=== PATIENT | female | born 1955 | race Caucasian/White ===

== ENCOUNTER → 2017-01-11 | Outpatient (CLI) | payer BC ==
[~2017-01-11] MED LIST: NORCO 325 MG-51 TAB PO; PROBIOTIC FORMU1 CAP PO; VITAMIN D31000 I1 PO
== END ==
LOC: MC.RAD 10:06
DX: Z12.31 Encounter for screening mammogram for malignant neoplasm of breast (principal)

== ENCOUNTER 2017-05-31 22:10 | Emergency (ER) | payer BC ==
[~2017-05-31] VITALS: Ht 170.2 cm; Wt 56.8 kg
[2017-05-31 22:36] VITALS: BP 109/58; PULSE 81; TEMP 97.6
[2017-05-31] MEDS ORDERED: PROBIOTIC FORMU1 CAP PO (22:38)
[2017-05-31] MEDS ORDERED: VITAMIN D31000 I1 PO (22:38)
[2017-06-01] MEDS ORDERED: NORCO 325 MG-51 TAB PO (00:08)
== END 2017-06-01 00:28 | disposition home or self-care (01) ==
LOC: COL.ER 22:10
DX: M79.672 Pain in left foot (principal)

== ENCOUNTER → 2018-01-14 | Outpatient (CLI) | payer BC | LOC: MC.RAD 12:53 | DX: Z12.31 Encounter for screening mammogram for malignant neoplasm of breast (principal) ==

== ENCOUNTER → 2019-01-29 | Outpatient (CLI) | payer BC | LOC: MC.RAD 09:49 | DX: Z12.31 Encounter for screening mammogram for malignant neoplasm of breast (principal) ==

== ENCOUNTER → 2020-03-25 | Outpatient (CLI) | payer MEDICARE, BC | LOC: MC.RAD 12:15 | DX: Z12.31 Encounter for screening mammogram for malignant neoplasm of breast (principal) ==

== ENCOUNTER → 2021-06-13 | Outpatient (CLI) | payer BC, MEDICARE | LOC: MC.RAD 13:45 | DX: Z12.31 Encounter for screening mammogram for malignant neoplasm of breast (principal) ==

== ENCOUNTER → 2021-11-08 | Outpatient (CLI) | payer MEDICARE, BC | LOC: MC.RAD 12:43 | DX: N63.22 Unspecified lump in the left breast, upper inner quadrant (principal) ==

== ENCOUNTER 2022-01-06 08:01 | Day surgery (SDC) | payer MEDICARE, BC ==
[~2022-01-06] VITALS: Ht 170.2 cm; Wt 61.3 kg
[2022-01-06] MEDS ORDERED: CALCIUM 600 MG1 EAC2 PO (08:38)
[2022-01-06 09:04] VITALS: BP 102/56; PULSE 68; TEMP 97.7
[2022-01-06 10:44] VITALS: BP 97/57; PULSE 70; TEMP 97.8
--- NOTE | 2022-01-06 10:44 | NUR ---
Pt arrived from procedure awake and oriented. is present in room. Vitals obtained. Verbal report obtained from LUCIUS Tee. Pt requested hot coffee and a warm muffin. Incision to L breast is dry and intact; skin glue is dressing. Call bower is within reach on side table. Side rails x2. Pt denies nausea and pain.
[2022-01-06 10:59] VITALS: BP 99/63; PULSE 76
--- NOTE | 2022-01-06 10:59 | NUR ---
Vitals obtained. Pt has finished her muffin and continues to drink her coffee. Pt denies nause. Call bower remains within reach.
[2022-01-06 11:14] VITALS: BP 103/58; PULSE 79
--- NOTE | 2022-01-06 11:14 | NUR ---
Pt states pain 5/10, states a pulling sensation. Incision site remains dry and intact. PO medications administered. Vitals obtained. Pt states desire to be discharged. Call bower remains within reach.
--- NOTE | 2022-01-06 11:30 | NUR ---
DC instructions and educational material reviewed with the pt and her . Pt verbalized understanding and signed the related paperwork. Pt denied questions or concerns. IV discontinued. Catheter tip intact. Pressure dressing applied. NO redness or swelling noted. Pt denied needing assistance changing. Call bower remains within reach.
--- NOTE | 2022-01-06 11:55 | NUR ---
Pt dismissed from [facility] via wheelchair to the pt entrence by Deya KAN and Art. Pt's has DC packet in hand. Pt transferred into the care of her , who is present to drive.
== END 2022-01-06 11:55 | disposition home or self-care (01) ==
LOC: SDCO 08:01
DX: D05.82 Other specified type of carcinoma in situ of left breast (principal)
CPT/HCPCS: J2405; J2704; J3010; J7120

== ENCOUNTER → 2022-06-16 | Outpatient (CLI) | payer MEDICARE, BC ==
[~2022-06-16] MED LIST changes: +CALCIUM 600 MG1 EAC2 PO
== END ==
LOC: MC.RAD 14:30
DX: Z12.31 Encounter for screening mammogram for malignant neoplasm of breast (principal); Z85.3 Personal history of malignant neoplasm of breast; Z92.3 Personal history of irradiation